=== PATIENT | male | born 1985 | race African-American/Black ===

== ENCOUNTER 2021-05-03 20:30 | Emergency (ER) | payer MEDICAID ==
[~2021-05-03] VITALS: Ht 175.3 cm; Wt 96.2 kg
[2021-05-03 21:14] VITALS: BP 132/88
[2021-05-03] MEDS ORDERED: LIDOCAINE HCL/PF 1% 10 MG/ML 5ML VIAL INFIL ONE (23:15)
[2021-05-03] MEDS ORDERED: BACITRACIN ZINC OINT UDPKT TOP ONE (23:15)
[2021-05-03] MEDS ORDERED: DOXY100C5 MT (23:58)
== END 2021-05-04 00:05 | disposition home or self-care (01) ==
LOC: ER 20:30
DX: L72.3 Sebaceous cyst (principal); F41.9 Anxiety disorder, unspecified
CPT/HCPCS: 10060; 99282; J3490; Z7610

== ENCOUNTER 2022-01-03 12:33 | Emergency (ER) | payer MEDICAID ==
[~2022-01-03] VITALS: Ht 172.7 cm; Wt 100.0 kg
[~2022-01-03 12:33] MED LIST: DOXY100C5 MT
[2022-01-03 12:56] VITALS: BP 141/89
== END 2022-01-03 16:17 | disposition home or self-care (01) ==
LOC: ER 13:09
DX: J20.9 Acute bronchitis, unspecified (principal); F41.9 Anxiety disorder, unspecified; F17.290 Nicotine dependence, other tobacco product, uncomplicated; Z20.822 Contact with and (suspected) exposure to COVID-19
CPT/HCPCS: 71046; 82962; 87426; 99284; 99406; C9803

== ENCOUNTER 2022-01-03 21:09 | Emergency (ER) | payer MEDICAID ==
[~2022-01-03] VITALS: Ht 172.7 cm; Wt 80.0 kg
[2022-01-03 21:50] VITALS: BP 133/96
== END 2022-01-03 23:27 | disposition left against medical advice (07) ==
LOC: ER 21:09
DX: R05.9 Cough, unspecified (principal); F41.9 Anxiety disorder, unspecified
CPT/HCPCS: 99281

== ENCOUNTER 2022-03-12 07:50 | Emergency (ER) | payer MEDICAID ==
[~2022-03-12] VITALS: Ht 175.3 cm; Wt 91.6 kg
[2022-03-12 08:21] VITALS: BP 121/83
[2022-03-12] MEDS ORDERED: ACETAMINOPHEN 325MG TABLET PO STA (08:46)
[2022-03-12 09:13] LABS: CLARITY URINE CLEAR (CLEAR); COLOR URINE DARK YELLOW (YELLOW); KETONES URINE 1+ (NEGATIVE); LEUKOCYTE ESTERASE URINE TRACE (NEGATIVE); NITRITE URINE NEGATIVE (NEGATIVE); OCCULT BLOOD URINE NEGATIVE (NEGATIVE); PROTEIN URINE 1+ (NEGATIVE); SPECIFIC GRAVITY URINE 1.021 (1.005-1.030)
[2022-03-12] MEDS ORDERED: HYDROXYZINE 10 MG TABLET PO ONE (09:15)
[2022-03-12 09:16] LABS: BASOPHILS % 0.5 % (0.0-2.0); EOSINOPHILS % 1.1 % (0.0-5.0); HEMATOCRIT. 42.7 % (42.0-52.0); HEMOGLOBIN. 14.8 g/dL (14.0-18.0); LYMPHOCYTES % 29.2 % (20.0-50.0); MEAN CORPUSCULAR HEMOGLOBIN 32.2 pg (28.0-32.0); MEAN CORPUSCULAR VOLUME 93.3 fL (80.0-94.0); MEAN PLATELET VOLUME 7.9 fl (7.4-10.4); MONOCYTES % 10.8 % (2.0-8.0); NEUTROPHILS % 58.4 % (40.0-76.0); PLATELET 303 x1000/uL (130-400); RED BLOOD CELL COUNT 4.58 mill/uL (4.7-6.1); RED CELL DISTRIBUTION WIDTH 14.8 % (11.6-14.6)
[2022-03-12 09:24] LABS: CHLORIDE 102 mEq/L (98-107)
[2022-03-12 09:43] LABS: *AMPHETAMINES SCREEN URINE NEGATIVE (NEGATIVE); *BARBITURATES SCREEN URINE NEGATIVE (NEGATIVE); *BENZODIAZEPINES SCREEN URINE NEGATIVE (NEGATIVE); *COCAINE SCREEN URINE NEGATIVE (NEGATIVE); CANNABINOID URINE SCREEN NEGATIVE (NEGATIVE); METHADONE URINE SCREEN NEGATIVE (NEGATIVE); OPIATES URINE SCREEN NEGATIVE (NEGATIVE); PHENCYCLIDINE URINE SCREEN NEGATIVE (NEGATIVE)
[2022-03-12] MEDS ORDERED: ACET-2708 MT (10:48)
[2022-03-12] MEDS ORDERED: HYDR-3782 MT (10:48)
== END 2022-03-12 10:58 | disposition home or self-care (01) ==
LOC: ER 07:50
DX: F41.9 Anxiety disorder, unspecified (principal); J45.909 Unspecified asthma, uncomplicated
CPT/HCPCS: 36415; 71045; 80053; 80305; 81003; 85025; 99284

== ENCOUNTER 2023-12-16 14:55 | Emergency (ER) | payer MEDICAID ==
[~2023-12-16] VITALS: Ht 172.7 cm; Wt 94.0 kg
[~2023-12-16 14:55] MED LIST changes: +ACET-2708 MT; +HYDR-3782 MT
[2023-12-16 15:01] VITALS: TEMP 98.5; O2SAT 97
[2023-12-16 15:45] LABS: BASOPHILS % 0.3 % (0.0-2.0); EOSINOPHILS % 0.1 % (0.0-5.0); HEMATOCRIT. 45.3 % (42.0-52.0); HEMOGLOBIN. 15.8 g/dL (14.0-18.0); LYMPHOCYTES % 10.4 % (20.0-50.0); MEAN CORPUSCULAR HEMOGLOBIN 34.7 pg (28.0-32.0); MEAN CORPUSCULAR HGB CONC 34.8 g/dL (31.0-37.0); MEAN CORPUSCULAR VOLUME 99.7 fL (80.0-94.0); MEAN PLATELET VOLUME 8.5 fl (7.4-10.4); MONOCYTES % 6.2 % (2.0-8.0); PLATELET 197 x1000/uL (130-400); RED BLOOD CELL COUNT 4.54 mill/uL (4.7-6.1); RED CELL DISTRIBUTION WIDTH 14.8 % (11.6-14.6); WHITE BLOOD COUNT 8.3 x1000/uL (4.5-11.0)
[2023-12-16 15:55] LABS: CHLORIDE 88 mEq/L (98-107); POTASSIUM 3.9 mEq/L (3.5-5.1); SODIUM 132 mEq/L (136-145)
[2023-12-16 15:56] LABS: CARBON DIOXIDE 30 mEq/L (21-32)
[2023-12-16 15:57] LABS: CALCIUM 11.1 mg/dL (8.7-10.4)
[2023-12-16 16:01] LABS: CREATININE 1.4 mg/dL (0.6-1.3); GLUCOSE 146 mg/dL (70-105); UREA NITROGEN BLOOD 10 mg/dL (9-23)
[2023-12-16 17:06] LABS: CLARITY URINE TURBID (CLEAR); COLOR URINE DARK YELLOW (YELLOW); GLUCOSE URINE NEGATIVE (NEGATIVE); KETONES URINE 2+ (NEGATIVE); LEUKOCYTE ESTERASE URINE TRACE (NEGATIVE); NITRITE URINE NEGATIVE (NEGATIVE); OCCULT BLOOD URINE TRACE (NEGATIVE); PROTEIN URINE 4+ (NEGATIVE); SPECIFIC GRAVITY URINE 1.034 (1.005-1.030)
[2023-12-16 17:35] LABS: BACTERIA URINE 4+; SQUAMOUS EPITHELIAL CELL URINE 2+ /lpf (RARE/1+)
[2023-12-16] MEDS ORDERED: KETOROLAC 60MG/2ML VIAL IM ONE (18:45)
[2023-12-16] MEDS: ONDANSETRON 4MG ODT PO ONE (19:49)
[2023-12-16] MEDS: KETOROLAC 30MG/ML VIAL IM NR (19:49)
[2023-12-16 20:24] LABS: TROPONIN I HIGH SENSITIVITY 11 ng/L (3.0-53)
[2023-12-16] MEDS ORDERED: CIPR500T5 MT (21:33)
[2023-12-16 21:56] VITALS: BP 146/99; PULSE 99; RESP 12
== END 2023-12-16 21:57 | disposition left against medical advice (07) ==
LOC: ER 14:55
DX: R51.9 Headache, unspecified (principal); R11.10 Vomiting, unspecified; N39.0 Urinary tract infection, site not specified; R94.31 Abnormal electrocardiogram [ECG] [EKG]; F12.10 Cannabis abuse, uncomplicated; J45.909 Unspecified asthma, uncomplicated; Z20.822 Contact with and (suspected) exposure to COVID-19
CPT/HCPCS: 99285; 71045; 87426; 80048; 81003; 85025; 84484; 36415; 93005; 96372; Q0162; J1885

== ENCOUNTER 2025-04-06 10:32 | Inpatient (IN) | payer MEDICAID ==
[~2025-04-06] VITALS: Ht 167.6 cm; Wt 91.6 kg
[~2025-04-06 10:32] MED LIST changes: +CIPR-494 MT
[2025-04-06 10:43] VITALS: O2SAT 100
[2025-04-06 14:27] LABS: BASOPHILS % 1.5 % (0.0-2.0); EOSINOPHILS % 0.1 % (0.0-5.0); HEMATOCRIT. 42.6 % (42.0-52.0); HEMOGLOBIN. 14.8 g/dL (14.0-18.0); LYMPHOCYTES % 35.1 % (20.0-50.0); MEAN PLATELET VOLUME 7.6 fl (7.4-10.4); MONOCYTES % 5.8 % (2.0-8.0); NEUTROPHILS % 57.5 % (40.0-76.0); PLATELET 281 x1000/uL (130-400); RED BLOOD CELL COUNT 4.59 mill/uL (4.7-6.1); RED CELL DISTRIBUTION WIDTH 15.0 % (11.6-14.6)
[2025-04-06 14:41] LABS: CREATININE 0.7 mg/dL (0.6-1.3); UREA NITROGEN BLOOD 6 mg/dL (9-23)
[2025-04-06 14:43] LABS: ASPARTATE AMINOTRANSFERASE 215 IU/L (<34); BILIRUBIN DIRECT 0.2 mg/dL (<=3.0); BILIRUBIN TOTAL 0.6 mg/dL (0.1-1.0); PROTEIN TOTAL 7.0 g/dL (6.0-8.3)
[2025-04-06 16:14] LABS: TROPONIN I HIGH SENSITIVITY 30 ng/L (3.0-53)
[2025-04-06 17:30] VITALS: BP 158/92; PULSE 67; RESP 18; TEMP 36.4; O2SAT 99
[2025-04-06] MEDS ORDERED: IPRATROPIUM/ALBUTEROL 0.5-3(2.5)MG/3ML NEB HHN PRN (18:00)
[2025-04-06] MEDS ORDERED: LORAZEPAM 2MG/ML UD SYRINGE IV PRN (18:00)
[2025-04-06] MEDS ORDERED: ONDANSETRON HCL 4MG/2ML INJ IV PRN (18:00)
[2025-04-06] MEDS ORDERED: DOCUSATE SODIUM 100MG CAPSULE PO PRN (18:00)
[2025-04-06 18:07] VITALS: BP 158/92; PULSE 67; RESP 20; TEMP 36.418
[2025-04-06 20:00] VITALS: BP 157/88; PULSE 69; RESP 18; TEMP 37.4; O2SAT 96
[2025-04-06] MEDS: ACETAMINOPHEN 325MG TABLET PO PRN (21:08)
[2025-04-06] MEDS: CHLORDIAZEPOXIDE 25MG CAPSULE PO SCH (21:08)
[2025-04-06] MEDS: HYDRALAZINE HCL 25MG TABLET PO SCH (21:10)
[2025-04-06] MEDS: CLONIDINE 0.1MG TABLET PO PRN (23:54)
[2025-04-07] VITALS: BP 162/99; PULSE 67; RESP 18; TEMP 36.9; O2SAT 97
[2025-04-07 04:00] VITALS: BP 144/96; PULSE 65; RESP 16; TEMP 38; O2SAT 97
[2025-04-07] MEDS: SODIUM CHLORIDE 0.45% 1,000 ML IV SCH (04:00)
[2025-04-07] MEDS: ACETAMINOPHEN 325MG TABLET PO PRN (04:21)
[2025-04-07 08:00] VITALS: BP 149/105; PULSE 62; RESP 16; TEMP 36.9; O2SAT 97
[2025-04-07] MEDS: FOLIC ACID 1MG TABLET PO SCH (09:46)
[2025-04-07] MEDS: MULTIVITAMINS,THER W-MINERALS TABLET PO SCH (09:46)
[2025-04-07] MEDS: THIAMINE HCL 100MG TABLET PO SCH (09:46)
[2025-04-07 12:00] VITALS: BP 142/43; PULSE 83; RESP 18; TEMP 36.4; O2SAT 99
[2025-04-07 16:00] VITALS: BP 144/93; PULSE 77; RESP 20; TEMP 36.3; O2SAT 98
[2025-04-07 17:15] LABS: BASOPHILS % 1.0 % (0.0-2.0); EOSINOPHILS % 1.3 % (0.0-5.0); HEMATOCRIT. 42.8 % (42.0-52.0); HEMOGLOBIN. 14.7 g/dL (14.0-18.0); LYMPHOCYTES % 24.7 % (20.0-50.0); MEAN PLATELET VOLUME 8.3 fl (7.4-10.4); MONOCYTES % 10.4 % (2.0-8.0); NEUTROPHILS % 62.6 % (40.0-76.0); PLATELET 222 x1000/uL (130-400); RED BLOOD CELL COUNT 4.57 mill/uL (4.7-6.1); RED CELL DISTRIBUTION WIDTH 14.8 % (11.6-14.6)
[2025-04-07 17:24] LABS: INR 1.0
[2025-04-07 17:35] LABS: CREATININE 0.8 mg/dL (0.6-1.3); UREA NITROGEN BLOOD 6 mg/dL (9-23)
[2025-04-07 17:37] LABS: ASPARTATE AMINOTRANSFERASE 236 IU/L (<34); BILIRUBIN DIRECT 0.4 mg/dL (<=3.0); BILIRUBIN TOTAL 1.3 mg/dL (0.1-1.0); PHOSPHORUS 2.2 mg/dL (2.5-4.9); PROTEIN TOTAL 7.1 g/dL (6.0-8.3)
[2025-04-07 20:00] VITALS: BP 141/96; PULSE 49; RESP 18; TEMP 36.1; O2SAT 100
[2025-04-07] MEDS: POTASSIUM CHLORIDE 20MEQ TABLET SR PO NR (23:27)
[2025-04-08] VITALS: BP 120/74; PULSE 61; RESP 17; TEMP 36.1; O2SAT 100
[2025-04-08 04:00] VITALS: BP 139/89; PULSE 67; RESP 16; TEMP 36.6; O2SAT 98
[2025-04-08 07:51] LABS: BASOPHILS % 1.1 % (0.0-2.0); EOSINOPHILS % 2.7 % (0.0-5.0); HEMATOCRIT. 40.7 % (42.0-52.0); HEMOGLOBIN. 13.9 g/dL (14.0-18.0); LYMPHOCYTES % 22.5 % (20.0-50.0); MEAN PLATELET VOLUME 8.5 fl (7.4-10.4); MONOCYTES % 10.0 % (2.0-8.0); NEUTROPHILS % 63.7 % (40.0-76.0); PLATELET 181 x1000/uL (130-400); RED BLOOD CELL COUNT 4.37 mill/uL (4.7-6.1); RED CELL DISTRIBUTION WIDTH 15.1 % (11.6-14.6)
[2025-04-08 07:54] LABS: CREATININE 0.7 mg/dL (0.6-1.3)
[2025-04-08 07:55] LABS: UREA NITROGEN BLOOD 7 mg/dL (9-23)
[2025-04-08 08:00] VITALS: BP 146/100; PULSE 64; RESP 16; TEMP 37.1; O2SAT 99
[2025-04-08] MEDS: POTASSIUM CHLORIDE 20MEQ TABLET SR PO NR (08:22)
[2025-04-08 09:10] LABS: ASPARTATE AMINOTRANSFERASE 324 IU/L (<34); BILIRUBIN DIRECT 0.3 mg/dL (<=3.0); BILIRUBIN TOTAL 0.9 mg/dL (0.1-1.0)
[2025-04-08 09:11] LABS: PROTEIN TOTAL 6.2 g/dL (6.0-8.3)
[2025-04-08] MEDS: ARIPIPRAZOLE 5MG TABLET PO SCH (09:45)
[2025-04-08 10:23] LABS: HEPATITIS A AB IGM NEGATIVE (Negative)
[2025-04-08 10:24] LABS: HEPATITIS B CORE AB IGM NEGATIVE (Negative); HEPATITIS C AB NON REACTIVE (Neg) (Negative)
[2025-04-08 12:00] VITALS: BP 123/81; PULSE 81; RESP 18; TEMP 37.1; O2SAT 99
[2025-04-08] MEDS ORDERED: FOLI-43 PO (15:02)
[2025-04-08] MEDS ORDERED: CHLO25CA11 MT (15:02)
[2025-04-08] MEDS ORDERED: MULT-622 MT (15:02)
[2025-04-08] MEDS ORDERED: THIA100T72 PO (15:02)
[2025-04-08] MEDS ORDERED: ABIL5 PO (15:02)
[2025-04-08 16:00] VITALS: BP 127/95; PULSE 91; RESP 18; TEMP 37; O2SAT 98
[2025-04-08 16:59] VITALS: BP 127/95; PULSE 91; RESP 18; TEMP 98.6
== END 2025-04-08 17:32 | disposition home or self-care (01) | DRG 52 ==
LOC: ER 10:32 → 5WST 15:56 → EDBEDREQTM 16:02 → EDBEDREQ 16:02 → ENRESERV 16:46
PROVIDERS: ADMIT Internal Medicine; ATTEND Internal Medicine
PROC: GZ56ZZZ Individual Psychotherapy, Supportive (ICD-10-PCS; principal; 2025-04-08)
DX: G92.8 Other toxic encephalopathy (principal); F29 Unspecified psychosis not due to a substance or known physiological condition; F10.129 Alcohol abuse with intoxication, unspecified; I10 Essential (primary) hypertension; J45.909 Unspecified asthma, uncomplicated; F41.9 Anxiety disorder, unspecified; F32.A Depression, unspecified; Z20.822 Contact with and (suspected) exposure to COVID-19; Y90.8 Blood alcohol level of 240 mg/100 ml or more; Z79.899 Other long term (current) drug therapy; E66.9 Obesity, unspecified
CPT/HCPCS: 36415; 71045; 76700; 80048; 80076; 80307; 80320; 80329; 83735; 84100; 84145; 84484; 85025; 86705; 86709; 87340; 87426; 93005; 99291; G0480

== ENCOUNTER 2025-05-16 16:31 | Emergency (ER) | payer MEDICAID ==
[~2025-05-16] VITALS: Ht 177.8 cm; Wt 109.0 kg
[~2025-05-16 16:31] MED LIST changes: +ABIL5 PO; +CHLO25CA11 MT; -CIPR-494 MT; -DOXY100C5 MT; +FOLI-43 PO; +MULT-622 MT; +THIA100T72 PO
[2025-05-16 16:35] VITALS: BP 140/90; PULSE 86; RESP 18; TEMP 37.1; O2SAT 98
[2025-05-16] MEDS ORDERED: BENZ200C52 MT (18:21)
[2025-05-16] MEDS ORDERED: ALBU18HF2 IH (18:21)
== END 2025-05-16 18:43 | disposition home or self-care (01) ==
LOC: ER 16:31
DX: G62.9 Polyneuropathy, unspecified (principal); R05.9 Cough, unspecified; J45.909 Unspecified asthma, uncomplicated; I10 Essential (primary) hypertension; F41.9 Anxiety disorder, unspecified; Z79.899 Other long term (current) drug therapy
CPT/HCPCS: 99283